=== PATIENT | male | born 2000 | race Caucasian/White ===

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

== ENCOUNTER 2021-08-06 08:34 | Emergency (ER) | payer OTHER ==
[2021-08-06 08:56] VITALS: BP 128/70
--- NOTE | 2021-08-06 09:34 | XRAY Report ---
PROCEDURE: Ribs w/PA Chest LT INDICATIONS: trauma TECHNIQUE: 2 views of the left ribs were acquired, along with a single view chest. COMPARISON: None FINDINGS: Surgical changes and devices: None. Bones and chest wall: No fractures or dislocations. No suspicious bony lesions. Overlying soft tis sues appear unremarkable. Lungs and pleura: No pleural effusions or pneumothorax. Lungs appear clear. Mediastinum: Mediastinal contours appear normal. Heart size is normal. IMPRESSION: No gross displaced left rib fracture is seen. No acute cardiopulmonary pathology. Reviewed by: Alex Clemente MD on 08/06/2021 9:33 AM [facility] Approved by: Alex Clemente MD on 08/06/2021 9:33 AM [facility] Station ID: [id number]
--- NOTE | 2021-08-06 11:49 | ED Physician Documentation ---
PD HPI Fall - Stated complaint Stated Complaint: LFT RIB PX - Chief complaint Chief Complaint: General - History obtained from History obtained from: Patient - History of Present Illness Mechanism of injury: Tripped Fall distance: Standing position Timing - onset: How many weeks ago (3) Injury(ies) location: Chest (left anterolateral lower rib.) Quality of pain: Aching Associated symptoms: No: Weakness, Paresthesias, Dyspnea Worsens with: Movement Similar symptoms before: Has not had sx before Recently seen: Not recently seen Review of Systems Constitutional: denies: Fever, Chills Nose: denies: Rhinorrhea / runny nose, Congestion Throat: denies: Sore throat Cardiac: reports: Chest pain / pressure (intermittent sharp left anterolateral. Had been doing better after initial injury, then started to hurt again when worked out today (weights and pushups after a run).). denies: Palpitations, Pedal edema, Calf pain Respiratory: denies: Cough Skin: denies: Abrasion (s), Laceration (s) PD PAST MEDICAL HISTORY - Past Medical History Past Medical History: No Cardiovascular: None Respiratory: None Musculoskeletal: None - Past Surgical History Past Surgical History: No - Present Medications Home Medications: Ambulatory Orders Medication Instructions Recorded Confirmed Naproxen 500 mg PO BID #20 tablet 09/29/18 Hydrocodone/Acetaminophen 1 - 2 each PO Q6H PRN #10 tablet 10/13/18 [Hydrocodon-Acetaminophen 5-325] Ibuprofen [Motrin] 800 mg PO Q8H PRN #30 tablet 10/13/18 - Allergies Allergies/Adverse Reactions: Allergies Allergy/AdvReac Type Severity Reaction Status Date / Time No Known Drug Allergies Allergy Verified 08/06/21 08:55 - Social History Does the pt smoke?: No Smoking Status: Never smoker Does the pt drink ETOH?: No Does the pt have substance abuse?: No - Immunizations Immunizations are current?: Yes - POLST Patient has POLST: No PD ED PE NORMAL - Vitals Vital signs reviewed: Yes - General General: Alert and oriented X 3, No acute distress, Well developed/nourished - Cardiac Cardiac: RRR, No murmur - Respiratory Respiratory: No respiratory distress, Clear bilaterally, Other (tender left anterolateral chest at lowest rib cartilage without deformity, redness, rash. ) - Abdomen Abdomen: Soft, Non tender - Back Back: No CVA TTP - Derm Derm: Normal color, Warm and dry, No rash - Extremities Extremities: No edema, No calf tenderness / cord Results - Vitals Vitals: Vital Signs - 24 hr 08/06/21 08:54 Temperature 35.9 C L Heart Rate 59 L Respiratory 16 Rate Blood Pressure 128/70 O2 Saturation 96 Oxygen O2 Source Room air - Rads (name of study) chest xray Radiology: Prelim report reviewed (no visiblerib fractures nor lung abnormality. ), See rad report PD MEDICAL DECISION MAKING - ED course Complexity details: reviewed results, considered differential, d/w patient Departure - Departure Disposition: Home, Self Care Clinical Impression: Contusion of rib on left side Qualifiers: Encounter type: initial encounter Qualified Code(s): S20.212A - Contusion of left front wall of thorax, initial encounter Condition: Stable Record reviewed to determine appropriate education?: Yes Instructions: ED Contusion Rib Follow-Up: BRAYAN Woods [Provider Group] Comments: Your x-ray does not show any rib fractures nor lung injury. Presume some bruising of the muscles and cartilage in the area. Minimize vigorous activity and heavy lifting for another 5 or 6 days. I would suggest some ibuprofen 600 mg 3 times daily regularly for the next 5 or 6 days and to that add Tylenol if needed. Progress activity as tolerated after that. Forms: Activity restrictions Discharge Date/Time: 08/06/21 12:04
[2021-08-06] MEDS ORDERED: IBUPROFEN 600 MG TABLET PO STA (11:54)
[2021-08-06] MEDS ORDERED: ACETAMINOPHEN 325 MG TABLET PO STA (11:54)
== END 2021-08-06 12:04 | disposition home or self-care (01) ==
LOC: ED 08:34
DX: S20.212A Contusion of left front wall of thorax, initial encounter (principal); W01.0XXA Fall on same level from slipping, tripping and stumbling without subsequent striking against object, initial encounter
CPT/HCPCS: 71101; 99282; 99283; A9270

== ENCOUNTER 2022-11-29 02:29 | Outpatient (CLI) | payer OTHER | END 2022-11-29 02:30 | disposition E | LOC: EMS 02:29 | DX: V89.2XXA Person injured in unspecified motor-vehicle accident, traffic, initial encounter; Y92.413 State road as the place of occurrence of the external cause ==